=== PATIENT | male | born 1965 | race Caucasian/White ===

== ENCOUNTER → 2018-03-15 08:09 | Outpatient (CLI) | payer OTHER | END | disposition home or self-care (01) | LOC: D.US 08:00 | DX: I12.9 Hypertensive chronic kidney disease with stage 1 through stage 4 chronic kidney disease, or unspecified chronic kidney disease (principal); N18.3 Chronic kidney disease, stage 3 (moderate); E11.22 Type 2 diabetes mellitus with diabetic chronic kidney disease; Z68.41 Body mass index [BMI] 40.0-44.9, adult ==

== ENCOUNTER 2019-09-07 18:54 | Emergency (ER) | payer BC ==
[~2019-09-07] VITALS: Ht 170.2 cm; Wt 113.6 kg
[~2019-09-07 18:54] MED LIST: ABILIFY10 MG PO; EFFEXOR XR150 MG PO; ELIQUIS2.5 MG PO; GLUCOPHAGE1000 MG PO; KLONOPIN1 MG PO; LIPITOR10 MG PO; LIPITOR40 MG PO; LISINOPRIL10 MG PO; OMEPRAZOLE20 M1 PO; PERCOCET 10-321 EAC1 PO; SEROQUEL100 MG PO; TRULICITY1.5 MG/0.5 SC
[2019-09-07 19:17] VITALS: Ht 170.2 cm; Wt 113.6 kg
[2019-09-07] MEDS ORDERED: PROZAC10 MG PO (19:18)
[2019-09-07 19:21] LABS: BASOPHILS 0.6 % (0-2); EOSINOPHILS 1.3 % (0-7); HEMATOCRIT 44.9 % (42.0-54.0); HEMOGLOBIN 14.4 g/dL (13.5-17.5); IMMATURE GRANULOCYTES 0.2 % (0-5); LYMPHOCYTES 22.2 % (15-50); MCH 26.3 pg (26.0-34.0); MCHC 32.1 g/dL (31.0-37.0); MCV 81.9 fL (80.0-100.0); MEAN PLATELET VOLUME 9.5 fL (7.4-10.4); MONOCYTES 6.6 % (2-11); NEUTROPHILS 69.1 % (40-80); PLATELET COUNT 300 10x3/uL (130-400); RBC 5.48 10x6/uL (4.20-6.10); RDW 14.7 % (11.5-14.5); WBC 10.2 10x3/uL (4.8-10.8)
[2019-09-07 19:33] LABS: CALC OSMOLALITY 279 mosm/kg (275-300); CALCIUM 9.6 mg/dL (8.5-10.1); CARBON DIOXIDE 26.8 mmol/L (21.0-32.0); CHLORIDE - SERUM 101 mmol/L (98-107); CREATININE - SERUM 1.8 mg/dL (0.6-1.3); POTASSIUM - SERUM 3.9 mmol/L (3.5-5.1); SODIUM 140 mmol/L (136-145); UREA NITROGEN 17 mg/dL (7-18); eGFR NON AFRICAN AMERICAN 42 mL/min (90-120)
[2019-09-07 19:36] LABS: GLUCOSE 86 mg/dL (74-106)
[2019-09-07 19:39] LABS: ALBUMIN 4.3 g/dL (3.4-5.0); ALKALINE PHOSPHATASE 89 U/L (30-120); PROTEIN - SERUM 7.7 g/dL (6.4-8.2)
--- NOTE | 2019-09-07 19:46 | NUR ---
DR WONG NOTIFIED AND REVIEWED PT's BEHAVIOR AND ASSESSMENT RESULTS. PT IS A LOW RISK PER DR WONG. DR WONG STATED TO GIVE RESOURCES TO PT AT TIME OF DISCHARGE. NO FURTHER ORDERS AT THIS TIME.RESOURCES REVIEWED WITH PT AND HE VERBALIZED UNDERSTANDING.
[2019-09-07 20:07] LABS: ALT (SGPT) < 10 U/L (10-68)
[2019-09-07 20:28] VITALS: BP 138/88
== END 2019-09-07 20:37 | disposition home or self-care (01) ==
LOC: D.ER 18:54
PROVIDERS: Emergency Medicine
DX: F43.20 Adjustment disorder, unspecified (principal); F32.9 Major depressive disorder, single episode, unspecified; E11.9 Type 2 diabetes mellitus without complications; Z79.84 Long term (current) use of oral hypoglycemic drugs; I10 Essential (primary) hypertension

== ENCOUNTER 2020-08-29 19:13 | Emergency (ER) | payer OTHER ==
[~2020-08-29] VITALS: Ht 170.2 cm; Wt 116.4 kg
[~2020-08-29 19:13] MED LIST changes: +PROZAC10 MG PO
[2020-08-29 19:18] VITALS: Ht 170.2 cm; Wt 116.4 kg
[2020-08-29] MEDS ORDERED: SEROQUEL25 MG PO (19:22)
[2020-08-29 19:48] LABS: BILIRUBIN 3+ (NEGATIVE); KETONE NEGATIVE (NEGATIVE); NITRITE NEGATIVE (NEGATIVE); UROBILINOGEN NORMAL mg/dL (< 2)
[2020-08-29 19:52] LABS: BACTERIA FEW HPF (NONE SEEN); BASOPHILS 1.2 % (0-2); EOSINOPHILS 1.7 % (0-7); HEMATOCRIT 39.4 % (42.0-54.0); IMMATURE GRANULOCYTES 0.8 % (0-5); LYMPHOCYTE ABS# 2.46 10x3/uL (1.32-3.57); LYMPHOCYTES 37.8 % (15-50); MCH 26.5 pg (26.0-34.0); MCV 80.2 fL (80.0-100.0); MEAN PLATELET VOLUME 9.7 fL (7.4-10.4); MONOCYTES 11.2 % (2-11); NEUTROPHIL ABS# 3.08 10x3/uL (1.78-5.38); NEUTROPHILS 47.3 % (40-80); PLATELET COUNT 298 10x3/uL (130-400); RBC 4.91 10x6/uL (4.20-6.10); RDW 18.3 % (11.5-14.5); SQUAMOUS EPITHELIAL NONE SEEN HPF (0-4); WBC 6.5 10x3/uL (4.8-10.8); WHITE CELLS - URINE 0-5 HPF (0-1)
[2020-08-29 19:58] LABS: ANION GAP 9.1 mmol/L (8-16); CALCIUM 8.2 mg/dL (8.5-10.1); CARBON DIOXIDE 29.8 mmol/L (21.0-32.0); CREATININE - SERUM 1.4 mg/dL (0.6-1.3); POTASSIUM - SERUM 3.9 mmol/L (3.5-5.1)
[2020-08-29 20:26] LABS: ALBUMIN 2.8 g/dL (3.4-5.0); BILIRUBIN - TOTAL 7.11 mg/dL (0.2-1.3); PROTEIN - SERUM 7.1 g/dL (6.4-8.2)
[2020-08-29] MEDS ORDERED: TORADOL10 MG PO (21:22)
[2020-08-29 22:03] VITALS: BP 126/78
== END 2020-08-29 22:04 | disposition home or self-care (01) ==
LOC: D.ER 19:13
PROVIDERS: Family Medicine
DX: B15.9 Hepatitis A without hepatic coma (principal); E11.9 Type 2 diabetes mellitus without complications; I10 Essential (primary) hypertension